=== PATIENT | male | born 1995 | race Caucasian/White ===

== ENCOUNTER 2018-04-25 19:00 | Emergency (ER) | payer SELFPAY ==
[2018-04-25 19:03] VITALS: BP 133/75; PULSE 95; TEMP 98.6; BMI 37.2
[2018-04-25] MEDS ORDERED: IBUPROFEN 400 MG TABLET (FP) PO ONE (19:21)
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
== END 2018-04-25 20:33 | disposition home or self-care (01) ==
LOC: JERFT 19:00
DX: S83.8X2A Sprain of other specified parts of left knee, initial encounter (principal); Y04.2XXA Assault by strike against or bumped into by another person, initial encounter; Y93.89 Activity, other specified; Y92.89 Other specified places as the place of occurrence of the external cause; Y99.0 Civilian activity done for income or pay; Y07.9 Unspecified perpetrator of maltreatment and neglect
CPT/HCPCS: 73562-TC-LT-FY; 73590-TC-LT-FY; 99281-25

== ENCOUNTER 2020-06-26 17:58 | Emergency (ER) | payer BC, OTHER ==
[2020-06-26 18:20] VITALS: BP 105/75; PULSE 67; TEMP 98.1; BMI 37.2
[2020-06-26] MEDS ORDERED: FLUORESCEIN NA 1 EA STRIP ONE (18:27)
[2020-06-26] MEDS ORDERED: TETRACAINE 0.5% OPHTH SOLN 2 ML BOTTLE ONE (18:27)
[2020-06-26] MEDS ORDERED: ERYTHROMYCIN 0.5% OPHTHALMIC OINTMENT 3.5 GM TUBE OS ONE (18:33)
[2020-06-26] MEDS ORDERED: ERYTHROMYCIN 0.5% OPHTHALMIC OINTMENT 3.5 GM TUBE ONE (18:33)
[2020-06-26] MEDS ORDERED: DIPHTH,PERTUSS(ACELL),TET 0.5 ML DISP.SYRIN IM ONE ×2 (18:48→18:49)
== END 2020-06-26 18:47 | disposition home or self-care (01) ==
LOC: JERFT 17:58
PROC: 3E1CX8Z Irrigation of Eye using Irrigating Substance (ICD-10-PCS; principal; 2020-06-26)
DX: T15.92XA Foreign body on external eye, part unspecified, left eye, initial encounter (principal)
CPT/HCPCS: 99283-25

== ENCOUNTER 2020-09-14 13:34 | Emergency (ER) | payer OTHER ==
[2020-09-14 13:50] VITALS: BP 132/75; PULSE 83; TEMP 98.5; BMI 30.4
== END 2020-09-14 14:51 | disposition home or self-care (01) ==
LOC: JERFT 13:34
PROC: 0HQEXZZ Repair Left Lower Arm Skin, External Approach (ICD-10-PCS; principal; 2020-09-14)
DX: S41.112A Laceration without foreign body of left upper arm, initial encounter (principal)
CPT/HCPCS: 12002; 99284-25

== ENCOUNTER 2020-09-24 16:27 | Emergency (ER) | payer OTHER ==
[2020-09-24 16:41] VITALS: BP 129/64; PULSE 74; TEMP 98.5; BMI 32.6
== END 2020-09-24 17:13 | disposition home or self-care (01) ==
LOC: JERFT 16:27
DX: Z48.02 Encounter for removal of sutures (principal)
CPT/HCPCS: 99281-25

== ENCOUNTER 2024-07-14 21:30 | Emergency (ER) | payer OTHER ==
[2024-07-14 21:38] VITALS: RESP 20; TEMP 100.4; BMI 39.5
[2024-07-14] MEDS ORDERED: ACETAMINOPHEN 325 MG TABLET (FP) ONE (23:03)
[2024-07-14] MEDS: ACETAMINOPHEN 500 MG TABLET (FP) PO ONE (23:29)
[2024-07-14] MEDS ORDERED: KETOROLAC TROMETHAMINE 15 MG/ML VIAL ONE (23:51)
[2024-07-14] MEDS ORDERED: AMPICILLIN NA/SULBACTAM NA 3 GM/100 ML BAG IVPB ONE (23:51)
[2024-07-15] MEDS: AMPICILLIN NA/SULBACTAM NA 3 GM in SODIUM CHLORIDE 100 ML IVPB ONE (00:17)
[2024-07-15] MEDS: KETOROLAC TROMETHAMINE 15 MG/ML VIAL IVPUSH ONE (00:17)
[2024-07-15 00:32] LABS: BASO % 0.5 % (0-2.0); EOS % 1.4 % (0-4.5); HEMATOCRIT 42.9 % (35.4-49); HEMOGLOBIN 14.8 GM/dL (11.7-16.9); LYMPH % 20.5 % (8-40); MCH 28.7 pg (25.7-33.7); MCHC 34.5 g/dl (32.0-35.9); MEAN CELL VOLUME 83.3 fl (80-96); MEAN PLT VOLUME 9.5 fl (7.5-11.1); MONO % 10.5 % (3.8-10.2); NEUT % 67.1 % (42.8-82.8); PLATELET COUNT 238 10^3/uL (134-434); RBC 5.15 M/mm3 (4.00-5.60); WHITE BLOOD COUNT 9.6 K/mm3 (4.0-10.0)
[2024-07-15 00:54] LABS: POTASSIUM 4.6 mmol/L (3.5-5.1)
[2024-07-15 00:57] LABS: CALCIUM 9.2 mg/dL (8.5-10.1)
[2024-07-15 00:58] LABS: ALBUMIN 4.2 g/dl (3.4-5.0)
[2024-07-15 01:05] LABS: BILIRUBIN,TOTAL 0.8 mg/dL (0.2-1); TOT PROT 7.6 g/dl (6.4-8.2)
[2024-07-15 01:31] VITALS: BP 136/88; PULSE 101
== END 2024-07-15 04:00 | disposition short-term general hospital (02) ==
LOC: JER 21:30
PROC: 3E03329 Introduction of Other Anti-infective into Peripheral Vein, Percutaneous Approach (ICD-10-PCS; principal; 2024-07-15)
PROC: 3E0333Z Introduction of Anti-inflammatory into Peripheral Vein, Percutaneous Approach (ICD-10-PCS; 2024-07-15)
DX: R51.9 Headache, unspecified (principal); K04.8 Radicular cyst; K08.89 Other specified disorders of teeth and supporting structures
CPT/HCPCS: 36415; 70487-TC; 80053; 85025; 99285-25; Q9967